=== PATIENT | female | born 1985 | race Caucasian/White ===

== ENCOUNTER 2022-03-23 17:55 | Emergency (ER) | payer OTHER ==
[2022-03-23] MEDS ORDERED: KETOROLAC TROMETHAMINE 30 MG/1 ML VIAL IM ONE (18:18)
[2022-03-23 20:44] VITALS: BP 121/78; PULSE 89; RESP 18; TEMP 98.4; BMI 27.4
== END 2022-03-23 20:50 | disposition home or self-care (01) ==
LOC: JER 17:55
PROC: 3E0233Z Introduction of Anti-inflammatory into Muscle, Percutaneous Approach (ICD-10-PCS; principal; 2022-03-23)
DX: M54.2 Cervicalgia (principal); V49.50XA Passenger injured in collision with unspecified motor vehicles in traffic accident, initial encounter
CPT/HCPCS: 70450-TC; 72125-TC; 82962; 99285-25